=== PATIENT | male | born 1985 | race Caucasian/White ===

== ENCOUNTER 2024-12-21 10:27 | Day surgery (SDC) | payer BC ==
[~2024-12-21 10:27] MED LIST: Propofol 200 MG/20 ML SDV ONE
[2024-12-21] MEDS ORDERED: Midazolam 1 MG/ML 2 ML SDV ONE (10:59)
[2024-12-21] MEDS: Lactated Ringers 1,000 ML IV SCH (11:12)
[2024-12-21] MEDS ORDERED: Propofol 200 MG/20 ML SDV ONE ×2 (11:15→11:26)
[2024-12-21] MEDS ORDERED: Lactated Ringers 1,000 ML IV SCH (12:00)
== END 2024-12-21 12:30 | disposition home or self-care (01) ==
LOC: MW.SDS 10:27
PROVIDERS: ATTEND Surgery
DX: K22.2 Esophageal obstruction (principal); K29.50 Unspecified chronic gastritis without bleeding; K44.9 Diaphragmatic hernia without obstruction or gangrene; E66.9 Obesity, unspecified; Z68.32 Body mass index [BMI] 32.0-32.9, adult
CPT/HCPCS: 43239; 43249; C1726; J2003; J2250; J2704; J7120; 00731